=== PATIENT | male | born 1955 | race Caucasian/White ===

== ENCOUNTER → 2023-06-20 09:27 | Outpatient (REF) | payer MEDICARE, SELFPAY ==
[2023-06-20 11:51] LABS: HDL Cholesterol 41 mg/dl; LDL Cholesterol, Calculated 74 mg/dl; Total Cholesterol 153 mg/dl (50-199); Triglyceride 193 mg/dl (10-149); Very Low Density Lipoprotein 38 mg/dl (0-30)
[2023-06-20 12:16] LABS: Microalbumin, Random Urine 1.1 mg/dl (0.6-1.7)
[2023-06-20 12:34] LABS: PSA, Total - Diagnostic 0.77 ng/ml (0.0-4.0)
[2023-06-20 14:35] LABS: Glycohemoglobin (HgbA1c) 8.5 % (4.0-5.6)
== END ==
LOC: HWLAB 09:27
PROVIDERS: ATTENDING PHYSICIAN Family Medicine Geriatric Medicine; FAMILY PHYSICIAN Student in an Organized Health Care Education/Training Program
DX: C61 Malignant neoplasm of prostate (principal); E11.9 Type 2 diabetes mellitus without complications; E78.00 Pure hypercholesterolemia, unspecified
CPT/HCPCS: 36415; 80061; 82043; 82570; 83036; 84153

== ENCOUNTER → 2023-08-12 10:21 | Outpatient (REF) | payer MEDICARE, SELFPAY ==
[2023-08-12 11:33] LABS: % Basophils 0.7 % (0-2); % Eosinophils 2.7 % (0-6); % Immature Granulocytes 0.8 % (0-0.5); % Lymphocytes 32.8 % (20.5-51.1); % Monocytes 9.1 % (1.7-9.3); % Neutrophils 53.9 % (42.2-75.2); Absolute Basophils 0.1 10^3/uL (0-0.2); Absolute Eosinophils 0.2 10^3/uL (0-0.7); Absolute Immature Granulocytes 0.1 10^3/uL (0-0.05); Absolute Lymphocytes 2.4 10^3/uL (1.2-3.4); Absolute Monocytes 0.7 10^3/uL (0.1-0.6); Hematocrit 37.2 % (39.0-52.0); Mean Corp Hgb Conc. 34.9 g/dL (33.0-37.0); Mean Corpuscular Volume 85.7 fL (80.0-94.0); Mean Platelet Volume 9.8 fL (7.4-10.4); Nucleated Red Blood Cells % 0 % (-); Platelet Count 248 10^3/uL (130-400); Red Blood Cell Count 4.34 10^6/uL (4.70-6.10); Red Cell Dist. Width 13.2 % (11.5-14.5); White Blood Cell Count 7.4 10^3/uL (4.8-10.8)
[2023-08-12 12:01] LABS: ALT (SGPT) 34 U/L (0-50); AST (SGOT) 28 U/L (17-59); Albumin 4.6 g/dl (3.5-5.0); Alkaline Phosphatase 32 U/L (38-126); Blood Urea Nitrogen 25 mg/dl (9-20); Calcium 10.9 mg/dl (8.4-10.2); Carbon Dioxide 26 mmol/L (22-30); Chloride 103 mmol/L (98-107); Glucose 129 mg/dl (70-99); Potassium 4.4 mmol/L (3.5-5.1); Sodium 140 mmol/L (135-145); Total Bilirubin 0.4 mg/dl (0.2-1.3); Total Protein 7.4 g/dl (6.3-8.2); eGFR > 60.00
[2023-08-12 12:07] LABS: C-Reactive Protein < 5.00 mg/L (0.0-10.00)
[2023-08-12 12:15] LABS: Erythrocyte Sed Rate 18 mm/hour (0-20)
== END ==
LOC: HWLAB 10:21
PROVIDERS: ATTENDING PHYSICIAN Internal Medicine Rheumatology; FAMILY PHYSICIAN Student in an Organized Health Care Education/Training Program
DX: M15.9 Polyosteoarthritis, unspecified (principal); Z79.1 Long term (current) use of non-steroidal anti-inflammatories (NSAID)
CPT/HCPCS: 36415; 80053; 85025; 85652; 86140

== ENCOUNTER → 2023-12-25 09:46 | Outpatient (REF) | payer MEDICARE, SELFPAY | LOC: MRI 3T 09:46 | PROVIDERS: ATTENDING PHYSICIAN Student in an Organized Health Care Education/Training Program | DX: M54.2 Cervicalgia (principal); R20.0 Anesthesia of skin | CPT/HCPCS: 72141 ==

== ENCOUNTER → 2024-01-12 09:43 | Outpatient (REF) | payer MEDICARE, SELFPAY | LOC: EMG 09:43 | PROVIDERS: ATTENDING PHYSICIAN Orthopaedic Surgery; FAMILY PHYSICIAN Student in an Organized Health Care Education/Training Program | DX: R20.0 Anesthesia of skin (principal); G56.02 Carpal tunnel syndrome, left upper limb | CPT/HCPCS: 95886; 95909 ==

== ENCOUNTER → 2024-02-13 09:25 | Outpatient (REF) | payer MEDICARE, SELFPAY ==
[2024-02-13 16:25] LABS: Intact PTH 19.6 pg/ml (13.6-85.8)
[2024-02-13 16:26] LABS: Vitamin D, 25-OH*** 34.3 ng/mL (30-80)
[2024-02-13 16:43] LABS: ALT (SGPT) 32 U/L (0-50); AST (SGOT) 25 U/L (17-59); Albumin 4.9 g/dl (3.5-5.0); Alkaline Phosphatase 30 U/L (38-126); Blood Urea Nitrogen 26 mg/dl (9-20); Calcium 10.1 mg/dl (8.4-10.2); Carbon Dioxide 24 mmol/L (22-30); Chloride 99 mmol/L (98-107); Glucose 139 mg/dl (70-99); Potassium 4.1 mmol/L (3.5-5.1); Sodium 138 mmol/L (135-145); Total Bilirubin 0.4 mg/dl (0.2-1.3); Total Protein 7.6 g/dl (6.3-8.2); eGFR > 60.00
== END ==
LOC: HWLAB 09:25
PROVIDERS: ATTENDING PHYSICIAN Internal Medicine Rheumatology; FAMILY PHYSICIAN Student in an Organized Health Care Education/Training Program
DX: E83.52 Hypercalcemia (principal); M15.9 Polyosteoarthritis, unspecified
CPT/HCPCS: 36415; 80053; 82306; 83970

== ENCOUNTER 2024-05-03 06:15 | Day surgery (SDC) | payer MEDICARE, SELFPAY ==
[2024-05-03 07:18] LABS: Glucose - Point of Care 154 mg/dl (70-99)
== END 2024-05-03 08:55 | disposition home or self-care (01) ==
LOC: GI 06:15
PROVIDERS: ATTENDING PHYSICIAN Internal Medicine
DX: Z12.11 Encounter for screening for malignant neoplasm of colon (principal); D12.2 Benign neoplasm of ascending colon; D12.3 Benign neoplasm of transverse colon; K57.30 Diverticulosis of large intestine without perforation or abscess without bleeding; Z86.0100 Personal history of colon polyps, unspecified
CPT/HCPCS: 45385; 88305; 82962

== ENCOUNTER → 2024-05-13 11:32 | Outpatient (REF) | payer MEDICARE, SELFPAY ==
[2024-05-13 13:13] LABS: Urine Albumin Negative (Neg - Trace); Urine Bilirubin Negative (Negative); Urine Character Clear (Clear); Urine Color Yellow; Urine Glucose Negative (Negative); Urine Ketone Negative (Negative); Urine Leukocyte Negative (Negative); Urine Nitrite Negative (Negative); Urine Occult Blood Negative (Negative); Urine Specific Gravity 1.005 (<1.030); Urine Urobilinogen Negative (Neg - 1+)
== END ==
LOC: CLAB 11:32
PROVIDERS: ATTENDING PHYSICIAN Physician Assistant
DX: R35.0 Frequency of micturition (principal)
CPT/HCPCS: 81003; 87086

== ENCOUNTER → 2024-08-23 07:16 | Outpatient (REF) | payer MEDICARE, SELFPAY ==
[2024-08-23 10:04] LABS: Hematocrit 38.2 % (39.0-52.0); Hemoglobin 12.9 g/dL (13.0-18.0); Mean Corp Hgb Conc. 33.8 g/dL (33.0-37.0); Mean Corpuscular Volume 88.2 fL (80.0-94.0); Nucleated Red Blood Cells % 0 % (-); Platelet Count 272 10^3/uL (130-400); Red Cell Dist. Width 12.7 % (11.5-14.5)
[2024-08-23 10:17] LABS: ALT (SGPT) 27 U/L (0-50); AST (SGOT) 22 U/L (17-59); Albumin 4.7 g/dl (3.5-5.0); Alkaline Phosphatase 22 U/L (38-126); Blood Urea Nitrogen 23 mg/dl (9-20); Calcium 10.2 mg/dl (8.4-10.2); Carbon Dioxide 24 mmol/L (22-30); Chloride 104 mmol/L (98-107); Glucose 155 mg/dl (70-99); Potassium 4.3 mmol/L (3.5-5.1); Sodium 139 mmol/L (135-145); Total Protein 7.2 g/dl (6.3-8.2); eGFR 59.10
== END ==
LOC: HWLAB 07:16
PROVIDERS: ATTENDING PHYSICIAN Internal Medicine Rheumatology; FAMILY PHYSICIAN Student in an Organized Health Care Education/Training Program
DX: M15.9 Polyosteoarthritis, unspecified (principal); E11.9 Type 2 diabetes mellitus without complications
CPT/HCPCS: 36415; 80053; 85025

== ENCOUNTER → 2024-12-02 08:22 | Outpatient (REF) | payer MEDICARE, SELFPAY ==
[2024-12-02 12:42] LABS: ALT (SGPT) 28 U/L (0-50); AST (SGOT) 22 U/L (17-59); Albumin 4.7 g/dl (3.5-5.0); Alkaline Phosphatase 22 U/L (38-126); Blood Urea Nitrogen 29 mg/dl (9-20); Calcium 10.0 mg/dl (8.4-10.2); Carbon Dioxide 25 mmol/L (22-30); Chloride 101 mmol/L (98-107); Glucose 141 mg/dl (70-99); HDL Cholesterol 36 mg/dl; Iron 77 ug/dl (49-181); LDL Cholesterol, Calculated 85 mg/dl; Potassium 4.5 mmol/L (3.5-5.1); Sodium 137 mmol/L (135-145); Total Protein 7.4 g/dl (6.3-8.2); Very Low Density Lipoprotein 31 mg/dl (0-30); eGFR > 60.00
[2024-12-02 12:51] LABS: Total Iron Binding Capacity 315 ug/dl (261-462)
[2024-12-02 12:58] LABS: Hematocrit 39.2 % (39.0-52.0); Hemoglobin 13.3 g/dL (13.0-18.0); Mean Corp Hgb Conc. 33.9 g/dL (33.0-37.0); Mean Corpuscular Volume 85.6 fL (80.0-94.0); Nucleated Red Blood Cells % 0 % (-); Platelet Count 249 10^3/uL (130-400); Red Cell Dist. Width 13.1 % (11.5-14.5); Reticulocyte Count 1.6 % (0.4-2.8)
[2024-12-02 13:09] LABS: TSH 2.42 uIU/ml (0.47-4.68)
[2024-12-02 13:13] LABS: Ferritin 173.0 ng/ml (17.9-464.0)
[2024-12-02 13:26] LABS: Glycohemoglobin (HgbA1c) 7.1 % (4.0-5.9)
[2024-12-02 13:33] LABS: Microalb - Urine Creatinine 207.900 mg/dl
[2024-12-02 13:34] LABS: Microalbumin, Random Urine 2.5 mg/dl (0.6-1.7)
== END ==
LOC: HWLAB 08:22
PROVIDERS: ATTENDING PHYSICIAN Internal Medicine Cardiovascular Disease; FAMILY PHYSICIAN Internal Medicine
DX: E78.5 Hyperlipidemia, unspecified (principal); E11.9 Type 2 diabetes mellitus without complications; E78.00 Pure hypercholesterolemia, unspecified; D64.9 Anemia, unspecified
CPT/HCPCS: 36415; 80053; 80061; 82043; 82570; 82728; 83036; 83540; 83550; 84443; 85025; 85045

== ENCOUNTER → 2025-01-12 06:37 | Outpatient (REF) | payer MEDICARE, SELFPAY | LOC: MRI 06:37 | PROVIDERS: ATTENDING PHYSICIAN Student in an Organized Health Care Education/Training Program | DX: M79.606 Pain in leg, unspecified (principal); G62.9 Polyneuropathy, unspecified | CPT/HCPCS: 72148 ==

== ENCOUNTER → 2025-01-18 13:03 | Outpatient (REF) | payer MEDICARE, SELFPAY | LOC: RAD 13:03 | PROVIDERS: ATTENDING PHYSICIAN Student in an Organized Health Care Education/Training Program | DX: R05.3 Chronic cough (principal) | CPT/HCPCS: 71046 ==

== ENCOUNTER → 2025-01-31 07:29 | Outpatient (REF) | payer MEDICARE, SELFPAY | LOC: HWRCS 07:29 | PROVIDERS: ATTENDING PHYSICIAN Internal Medicine Cardiovascular Disease; FAMILY PHYSICIAN Student in an Organized Health Care Education/Training Program | DX: R42 Dizziness and giddiness (principal); R94.31 Abnormal electrocardiogram [ECG] [EKG] | CPT/HCPCS: 78452; 93017; A9500; J2785 ==